=== PATIENT | female | born 1985 | race Caucasian/White ===

== ENCOUNTER 2016-07-30 15:28 | Emergency (ER) | payer BC, OTHER ==
[~2016-07-30] VITALS: Ht 157.5 cm; Wt 73.4 kg
[~2016-07-30 15:28] MED LIST: CLON.5 PO; LEXA5TAB PO; MECL-62 PO
[2016-07-30 15:33] VITALS: BP 138/94; PULSE 100; RESP 19; TEMP 98.4; O2SAT 97
[2016-07-30] MEDS ORDERED: VALA1TAB PO (16:58)
[2016-07-30] MEDS ORDERED: LEXA10TA PO (16:58)
--- NOTE | 2016-07-30 17:57 | PD ---
HPI Chief Complaint: Abdominal Pain Time Seen by Provider: 17:46 Travel History International Travel<30 days: No Contact w/Intl Traveler<30days: No Traveled to known affect area: No History of Present Illness HPI This 31-year-old female says she been sick since this morning. Around 10:00 she started having crampy abdominal pain and diarrhea. He has vomited twice. She says that 2 years ago she had C. difficile and she is concerned she may have it again. she's had recurrent bouts of diarrhea since this all started. She is not aware of any unusual food. She had been camping the day before started. She is not aware of fever or chills. She says there is no chance of . PFSH Past Medical History Anxiety: Yes Cardiovascular Problems: Yes (HTN) Diminished Hearing: No Hypertension: Yes Neurologic: Yes (vertigo) ?: Not LMP: 1 WEEK Past Surgical History Other Surgery: Yes (sphincterotomy 05/2015) Social History Alcohol Use: Yes (OCCASIOANL) Tobacco Use: No Substance Use: No Allergies-Medications (Allergen,Severity, Reaction): Coded Allergies: No Known Allergies (Verified , 01/19/16) Reported Meds & Prescriptions Reported Meds & Active Scripts Active Flagyl (Metronidazole) 500 Mg Tab 500 Mg PO TID 7 Days Dicyclomine (Dicyclomine HCl) 20 Mg Tab 20 Mg PO TID Zofran Odt (Ondansetron Odt) 4 Mg Tab 4 Mg SL Q6HR PRN Reported Valacyclovir (Valacyclovir HCl) 1 Gm Tab 2,000 Mg PO TID Lexapro (Escitalopram Oxalate) 10 Mg Tab 10 Mg PO DAILY Review of Systems General / Constitutional: No: Fever, Chills Eyes: No: Diploplia, Blurred Vision HENT: No: Headaches, Vertigo Cardiovascular: No: Chest Pain or Discomfort, Palpitations Respiratory: No: Cough, Shortness of Breath Gastrointestinal: Positive: Vomiting, Diarrhea, Abdominal Pain Genitourinary: No: Urgency, Frequency Musculoskeletal: No: Myalgias, Arthralgias Skin: No Rash, No Itching Neurologic: No: Weakness, Dizziness Hematologic/Lymphatic: No: Easy Bruising Physical Exam Narrative GENERAL: Well-developed female SKIN: Focused skin assessment warm/dry. HEAD: Atraumatic. Normocephalic. EYES: Pupils equal and round. No scleral icterus. No injection or drainage. ENT: No nasal bleeding or discharge. Mucous membranes pink and moist. NECK: Trachea midline. No JVD. CARDIOVASCULAR: Regular rate and rhythm. No murmur appreciated. RESPIRATORY: No accessory muscle use. Clear to auscultation. Breath sounds equal bilaterally. GASTROINTESTINAL: Abdomen soft, non-tender, nondistended. Hepatic and splenic margins not palpable. Bowel sounds hyperactive MUSCULOSKELETAL: No obvious deformities. No clubbing. No cyanosis. No edema. NEUROLOGICAL: Awake and alert. No obvious cranial nerve deficits. Motor grossly within normal limits. Normal speech. PSYCHIATRIC: Appropriate mood and affect; insight and judgment normal. Data Data Last Documented VS Vital Signs Date Time Temp Pulse Resp B/P Pulse Ox O2 Delivery O2 Flow Rate FiO2 07/30/16 18:55 70 16 119/76 99 Room Air 07/30/16 15:33 98.4 Orders Complete Blood Count With Diff (07/30/16 17:49) Basic Metabolic Panel (Bmp) (07/30/16 17:49) Rotavirus Ag Detection (Stool) (07/30/16 17:49) Enteric Path (Stool) (07/30/16 17:49) C Diff Toxin Pcr (07/30/16 17:49) Sodium Chlor 0.9% 1000 Ml Inj (Ns 1000 M (07/30/16 18:00) Ondansetron Inj (Zofran Inj) (07/30/16 18:00) Dicyclomine (Bentyl) (07/30/16 18:00) Labs Laboratory Tests Test 07/30/16 17:52 White Blood Count 7.7 TH/MM3 Red Blood Count 4.50 MIL/MM3 Hemoglobin 13.7 GM/DL Hematocrit 39.5 % Mean Corpuscular Volume 87.7 FL Mean Corpuscular Hemoglobin 30.5 PG Mean Corpuscular Hemoglobin 34.8 % Concent Red Cell Distribution Width 12.0 % Platelet Count 234 TH/MM3 Mean Platelet Volume 7.1 FL Neutrophils (%) (Auto) 78.6 % Lymphocytes (%) (Auto) 11.3 % Monocytes (%) (Auto) 8.2 % Eosinophils (%) (Auto) 0.8 % Basophils (%) (Auto) 1.1 % Neutrophils # (Auto) 6.0 TH/MM3 Lymphocytes # (Auto) 0.9 TH/MM3 Monocytes # (Auto) 0.6 TH/MM3 Eosinophils # (Auto) 0.1 TH/MM3 Basophils # (Auto) 0.1 TH/MM3 CBC Comment DIFF FINAL Differential Comment Sodium Level 140 MEQ/L Potassium Level 3.8 MEQ/L Chloride Level 109 MEQ/L Carbon Dioxide Level 23.4 MEQ/L Anion Gap 8 MEQ/L Blood Urea Nitrogen 13 MG/DL Creatinine 0.66 MG/DL Estimat Glomerular Filtration 105 ML/MIN Rate Random Glucose 91 MG/DL Calcium Level 8.5 MG/DL [facility] Medical Decision Making Medical Screen Exam Complete: Yes Emergency Medical Condition: Yes Medical Record Reviewed: Yes Differential Diagnosis Differential includes enteritis, C. difficile, colitis, gastroenteritis Narrative Course Lab work is unremarkable. Patient has been given some IV fluids and feels better. She is stable for discharge. At the time of discharge the C. difficile result has not come back. I have written a prescription for Flagyl but advised to take it only if the C. difficile test is positive Diagnosis Primary Impression: Gastroenteritis Scripts Metronidazole (Flagyl)500 Mg Tpi614 Mg PO TID 7 Days Ref 0 Prov:Ramirez Linn MD 07/30/16 Dicyclomine 20 Mg Tab20 Mg PO TID #15 TAB Ref 0 Prov:Ramirez Linn MD 07/30/16 Ondansetron Odt (Zofran Odt)4 Mg Tab4 Mg SL Q6HR PRN (Nausea/Vomiting) #7 TAB Ref 0 Prov:Ramirez Linn MD 07/30/16 Disposition: 01 DISCHARGE HOME Condition: Stable Ramirez Linn MD July 30, 2016 17:57
[2016-07-30] MEDS ORDERED: SODIUM CHLOR 0.9% 1000 ML INJ 1,000 ML IV ONE (18:00)
[2016-07-30] MEDS ORDERED: ONDANSETRON HCL 4 MG/2 ML VIAL IV PUSH ONE (18:00)
[2016-07-30] MEDS ORDERED: DICYCLOMINE HCL 20 MG TAB PO ONE (18:00)
[2016-07-30 18:14] LABS: BASOPHIL # 0.1 TH/MM3 (0-0.2); BASOPHIL % 1.1 % (0.0-2.0); EOSINOPHIL # 0.1 TH/MM3 (0-0.4); EOSINOPHIL % 0.8 % (0.0-4.0); HEMATOCRIT 39.5 % (35.0-46.0); LYMPH % 11.3 % (9.0-44.0); LYMPHOCYTE # 0.9 TH/MM3 (1.0-4.8); MEAN CELL VOLUME 87.7 FL (80.0-100.0); MEAN CORPUSCULAR HEMOGLOBIN 30.5 PG (27.0-34.0); MEAN CORPUSCULAR HGB CONC 34.8 % (32.0-36.0); MONO % 8.2 % (0.0-8.0); NEUT % 78.6 % (16.0-70.0); PLATELET COUNT 234 TH/MM3 (150-450); WHITE BLOOD COUNT 7.7 TH/MM3 (4.0-11.0)
[2016-07-30 18:51] LABS: POTASSIUM 3.8 MEQ/L (3.5-5.1)
[2016-07-30 18:52] LABS: HEMO FLAGS DIFF FINAL
[2016-07-30 18:53] LABS: BICARBONATE 23.4 MEQ/L (21.0-32.0)
[2016-07-30 18:55] VITALS: BP 119/76; PULSE 70; RESP 16; O2SAT 99
[2016-07-30] MEDS ORDERED: METR-1 PO (19:34)
[2016-07-30] MEDS ORDERED: ZOFR4TAB3 SL (19:34)
[2016-07-30] MEDS ORDERED: DICY20TA10 PO (19:34)
[2016-07-30 19:50] VITALS: BP 117/63; PULSE 72; RESP 16; O2SAT 98
[2016-07-30 20:20] LABS: C. DIFF EPI 027 PRESUMPTIVE NEGATIVE (NEGATIVE); C. DIFF TOXIN PCR NEGATIVE (NEGATIVE)
== END 2016-07-30 20:04 | disposition home or self-care (01) ==
LOC: PHED 15:28
DX: K52.9 Noninfective gastroenteritis and colitis, unspecified (principal); I10 Essential (primary) hypertension; Z79.899 Other long term (current) drug therapy
CPT/HCPCS: 80048; 85025; 87425; 87493; 87506; 96361; 96374; 99284; J2405; J7030

== ENCOUNTER 2017-01-12 06:57 | Emergency (ER) | payer OTHER ==
[~2017-01-12] VITALS: Ht 160 cm; Wt 75.6 kg
[~2017-01-12 06:57] MED LIST changes: -CLON.5 PO; +DICY20TA10 PO; +LEXA10TA PO; -LEXA5TAB PO; -MECL-62 PO; +METR-1 PO; +VALA1TAB PO; +ZOFR4TAB3 SL
[2017-01-12 07:03] VITALS: BP 157/105; PULSE 107; RESP 16; TEMP 97.6; O2SAT 98
--- NOTE | 2017-01-12 07:28 | PD ---
HPI Chief Complaint: Allergic/Adverse Reaction Time Seen by Provider: 07:14 Travel History International Travel<30 days: No Contact w/Intl Traveler<30days: No Traveled to known affect area: No History of Present Illness HPI 31-year-old female states she slept on a friend's couch that has cats and she woke up this morning and had a rash to her neck and felt itchy all over. She states she is not taking any medication prior to arrival. She denies any other complaints at this moment. She states she starting to feel better here. She states that she's had a reaction to cats before but not this bad. Quality is itchy. Severity is all over. Duration is shortly prior to arrival. She drove herself here. [facility] Past Medical History Anxiety: Yes Cardiovascular Problems: Yes (HTN) Diminished Hearing: No Hypertension: Yes Neurologic: Yes (vertigo) ?: Not LMP: 01/06/17 Past Surgical History Other Surgery: Yes (sphincterotomy 05/2015) Social History Alcohol Use: Yes (OCCASIOANL) Tobacco Use: No Substance Use: No Allergies-Medications (Allergen,Severity, Reaction): Coded Allergies: No Known Allergies (Verified , 01/19/16) Reported Meds & Prescriptions Reported Meds & Active Scripts Active Reported Klonopin (Clonazepam) 0.5 Mg Tab 0.5 Mg PO BID PRN Valacyclovir (Valacyclovir HCl) 1 Gm Tab 2,000 Mg PO TID Lexapro (Escitalopram Oxalate) 10 Mg Tab 10 Mg PO DAILY Review of Systems Except as stated in HPI: all other systems reviewed are Neg Physical Exam Narrative General: No apparent distress, well appearing ENT: Posterior oropharyngx clear without exudate or erythema, uvula midline and without swelling, external auditory canals are normal. Bilateral TM clear Neck: Neck is supple, no meningeal signs, trachea is midline Cardiovascular: Regular rate and rhythm Lungs: No increased respiratory effort noted, CTA bilaterally Abdomen: Soft, NT, ND, no rebound or guarding Back: No step-offs, midline spine nontender Extremities: No edema skin: Small limited hive-like type rash noted to anterior aspect of neck without signs of infection Eyes: Clear drainage noted from eyes and small amount of redness noted Neuro: Awake, motor and sensation grossly intact, normal speech Data Data Last Documented VS Vital Signs Date Time Temp Pulse Resp B/P (MAP) Pulse Ox O2 Delivery O2 Flow Rate FiO2 01/12/17 07:30 126/78 (94) 01/12/17 07:03 97.6 107 16 98 Orders Orders Diphenhydramine (Benadryl) (01/12/17 07:30) [facility] Medical Decision Making Medical Screen Exam Complete: Yes Emergency Medical Condition: Yes Medical Record Reviewed: Yes (past history confirmed) Differential Diagnosis Allergic reaction, URI, hypertension Narrative Course Patient states she gets white coat syndrome. We'll repeat blood pressure and dose with Benadryl and reevaluate When patient felt better her blood pressure did improve on its own. Advised for her to check this as an outpatient, Patient denies any new complaints and states that they are feeling better. rash resolved, all questions answered. Patient knows that follow up is incumbent on them and to return to the emergency room immediately if new or worsening symptoms develop. Patient given strict return precautions, vitals reviewed and are normal, agrees to further workup as an outpatient. Diagnosis Primary Impression: Allergic reaction Qualified Codes: T78.40XA - Allergy, unspecified, initial encounter Patient Instructions: General Instructions Additional Instructions: benadryl as needed, follow with primary this week for recheck, return as needed Med/Other Pt SpecificInfo: No Change to Meds Disposition: 01 DISCHARGE HOME Condition: Stable Funmi Patton MD Jan 12, 2017 07:28
[2017-01-12 07:30] VITALS: BP 126/78
[2017-01-12] MEDS ORDERED: diphenhydrAMINE HCL 50 MG CAP PO ONE (07:30)
[2017-01-12] MEDS ORDERED: CLON.5 PO (07:33)
== END 2017-01-12 09:19 | disposition home or self-care (01) ==
LOC: PHED 06:57
DX: T78.40XA Allergy, unspecified, initial encounter (principal); R21 Rash and other nonspecific skin eruption; L29.9 Pruritus, unspecified; I10 Essential (primary) hypertension; Z86.59 Personal history of other mental and behavioral disorders; Z86.79 Personal history of other diseases of the circulatory system; Z86.69 Personal history of other diseases of the nervous system and sense organs
CPT/HCPCS: 99283; Q0163